=== PATIENT | female | born 1930 | race Caucasian/White ===

== ENCOUNTER 2017-07-22 11:59 | Inpatient (IN) | payer MEDICARE ==
[2017-07-17 17:02] VITALS: BMI 21.4
[2017-07-22] MEDS ORDERED: cefTRIAXone IV 1 gm in Dextros 50 ML BAG IVPB SCH (16:00)
--- NOTE | 2017-07-22 17:50 | CP.PCM.CON ---
History of Present Illness - History of Present Illness History of Present Illness: consult dictated DOMINENT TEMPORAL LOBE STROKE WITH CONDUCTIVE [facility] IN [place] ON PLAVIX AND COUMADIN WILL KEEP HER ON FOR 6 MONTHS AND WILL REPEAT THE STUDY SPEECH THERAPY OOB AND PT Past Patient History - Past Medical History & Family History Past Medical History?: Yes - Past Social History Smoking Status: Never Smoked - CARDIAC Hx Hypercholesterolemia: Yes Hx Hypertension: Yes - HEMATOLOGICAL/ONCOLOGICAL Hx AIDS: No Hx Human Immunodeficiency Virus (HIV): No - MUSCULOSKELETAL/RHEUMATOLOGICAL Hx Falls: No - GENITOURINARY/GYNECOLOGICAL Other/Comment: cystitis - PSYCHIATRIC Hx Substance Use: No - SURGICAL HISTORY Hx Surgeries: No Meds Allergies/Adverse Reactions: Allergies Allergy/AdvReac Type Severity Reaction Status Date / Time No Known Allergies Allergy Verified 07/17/17 17:01 - Medications Medications: Current Medications Acetaminophen (Tylenol 325mg Tab) 650 mg PO TID PRN PRN Reason: Headache Atorvastatin Calcium (Lipitor) 20 mg PO HS [facility] Clopidogrel Bisulfate (Plavix) 75 mg PO DAILY [facility] Ceftriaxone Sodium 1 gm/ (Sodium Chloride) 100 mls @ 100 mls/hr IVPB DAILY [facility] Lisinopril (Zestril) 20 mg PO DAILY [facility] Results - Vital Signs Recent Vital Signs: Last Vital Signs Temp Pulse 70 07/22/17 16:10 Resp 20 07/22/17 16:10 BP Pulse Ox 97 07/22/17 16:10
--- NOTE | 2017-07-22 18:08 | CP.PCM.PN ---
Subjective - Date & Time of Evaluation Date of Evaluation: 07/22/17 Time of Evaluation: 18:07 - Subjective Subjective: CVA Objective - Vital Signs/Intake and Output Vital Signs (last 24 hours): Temp Pulse Resp BP Pulse Ox 70 20 97 07/22/17 16:10 07/22/17 16:10 07/22/17 16:10 - Medications Medications: Current Medications Acetaminophen (Tylenol 325mg Tab) 650 mg PO TID PRN PRN Reason: Headache Atorvastatin Calcium (Lipitor) 20 mg PO HS [facility] Clopidogrel Bisulfate (Plavix) 75 mg PO DAILY [facility] Cyanocobalamin (Vitamin B12 1000 Mcg/Ml Inj) 1,000 mcg IM ONCE [facility] Stop: 07/24/17 17:57 Last Admin: 07/22/17 18:07 Dose: 1,000 mcg Ceftriaxone Sodium 1 gm/ (Sodium Chloride) 100 mls @ 100 mls/hr IVPB DAILY@ 1700 [facility] Last Admin: 07/22/17 18:06 Dose: 100 mls/hr Lisinopril (Zestril) 20 mg PO DAILY [facility] Physiatry Overall Plan of Care - Overall Plan of Care Estimated Length of Stay in Weeks: 3 Rehab Impairment: Mobility, Gait, Speech, Balance, Coordination Etiologic Diagnosis: Cerebrovascular Accident Rehab/Medical Prognosis: Fair - Anticipated Interventions Physical Therapy:: Yes Occupational Therapy:: Yes Speech Therapy:: Yes Recreational Therapy:: Yes - Therapy Goals Bed Mobility: Supervision Ambulation: Supervision Functional Positional Changes:: Supervision - Discharge Plan Discharge Destination: Home
--- NOTE | 2017-07-22 18:14 | CP.PCM.CON ---
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 absent: Abnormal Movements Past Patient History - Past Medical History & Family History Past Medical History?: Yes - Past Social History Smoking Status: Never Smoked Alcohol: None Drugs: Denies Home Situation {Lives}: With Family - CARDIAC Hx Hypercholesterolemia: Yes Hx Hypertension: Yes - HEMATOLOGICAL/ONCOLOGICAL Hx AIDS: No Hx Human Immunodeficiency Virus (HIV): No - MUSCULOSKELETAL/RHEUMATOLOGICAL Hx Falls: No - GENITOURINARY/GYNECOLOGICAL Other/Comment: cystitis - PSYCHIATRIC Hx Substance Use: No - SURGICAL HISTORY Hx Surgeries: No Meds Allergies/Adverse Reactions: Allergies Allergy/AdvReac Type Severity Reaction Status Date / Time No Known Allergies Allergy Verified 07/17/17 17:01 - Medications Medications: Current Medications Acetaminophen (Tylenol 325mg Tab) 650 mg PO TID PRN PRN Reason: Headache Atorvastatin Calcium (Lipitor) 20 mg PO HS [facility] Clopidogrel Bisulfate (Plavix) 75 mg PO DAILY [facility] Cyanocobalamin (Vitamin B12 1000 Mcg/Ml Inj) 1,000 mcg IM ONCE [facility] Stop: 07/24/17 17:57 Last Admin: 07/22/17 18:07 Dose: 1,000 mcg Ceftriaxone Sodium 1 gm/ (Sodium Chloride) 100 mls @ 100 mls/hr IVPB DAILY@ 1700 [facility] Last Admin: 07/22/17 18:06 Dose: 100 mls/hr Lisinopril (Zestril) 20 mg PO DAILY [facility] Physical Exam - Constitutional Appears: Non-toxic, No Acute Distress - Head Exam Head Exam: ATRAUMATIC, NORMAL INSPECTION, NORMOCEPHALIC - Eye Exam Eye Exam: EOMI - ENT Exam ENT Exam: Mucous Membranes Moist - Respiratory Exam Respiratory Exam: NORMAL BREATHING PATTERN - Cardiovascular Exam Cardiovascular Exam: REGULAR RHYTHM - GI/Abdominal Exam GI & Abdominal Exam: Normal Bowel Sounds. absent: Distended - Extremities Exam Extremities exam: Positive for: normal inspection. Negative for: calf tenderness - Neurological Exam Neurological exam: Alert, CN II-XII Intact - Psychiatric Exam Psychiatric exam: Normal Affect, Normal Mood Results - Vital Signs Recent Vital Signs: Last Vital Signs Temp Pulse 70 07/22/17 16:10 Resp 20 07/22/17 16:10 BP Pulse Ox 97 07/22/17 16:10 Assessment & Plan - Assessment and Plan (Free Text) Assessment: 87 year old with left CVA and a decrease in ADL and ambulation PT/OT to continue to help increase functional independence Team conference for d/c planning Pain: controlled Vascular: no evidence of DVT GI: No evidence of constipation or diarrhea Patient is an excellent acute rehabilitation candidate and will have focused speech, PT, OT and recreational therapy to help facilitate a safe and appropriate d/c plan impairment code: 01.2
--- NOTE | 2017-07-22 23:11 | CON ---
ATTENDING PHYSICIAN: Isai Gann MD. LOCATION: Room #626. REASON FOR CONSULTATION: Speech impairment. HISTORY OF PRESENT ILLNESS: The patient was admitted last week (07/17/2017) with speech impairment which started abruptly following her lunch. Initially, the patient was manifesting a bit of possible transient global amnesia which was not recovered and persistent over 24-hour period. Did have a workup which showed a left temporal lobe acute ischemic process. She did undergo a CT angiogram which does not reveal any thrombogenesis or any obstruction in intracranial as well as extracranial arteries. 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 Following finding in the HERNAN, the patient was placed on Coumadin for long-term anticoagulation with antiplatelet agent. The patient completed her medical workup and she was stabilized, being transferred to acute rehabilitation. PAST MEDICAL HISTORY: Unremarkable except dyslipidemia. PERSONAL HISTORY: Denies smoking or alcohol use. ALLERGIES: NO KNOWN ALLERGIES. REVIEW OF SYSTEMS: As per the chart except neurological manifestation of speech impairment. PHYSICAL EXAMINATION: VITAL SIGNS: Blood pressure 130/86, pulse rate 82, respiratory rate 16, temperature afebrile. NECK: Supple. No carotid bruit. HEART: Sounds regular. CHEST: Fair air entry. EXTREMITIES: No edema in legs. NEUROLOGIC: Mental status: She is oriented to person only, the place she could not able to tell. Naming, repetition impaired. Fluency is intact. Comprehension is also affected. She could not able to read or spell at this time. No facial asymmetry. Hearing is normal. Tongue is midline. Good gag. Motor: Outstretched hand with eyes closed, no drift is noted. Power is symmetric on either side. Deep tendon reflexes, biceps, brachialis, and triceps are 1+ on either side, both knees are 1+, both ankles are absent. Plantars are downgoing. Sensory examination is grossly intact. Gait normal. She could be able to walk as usual. There is no evidence of hemiparetic gait. LABORATORY DATA: Her recent blood workup before [facility] at [facility] was WBC 4.4, hemoglobin 14.1, hematocrit 42.9, platelets 157. PT 11.6, INR 1.0, PTT 31. Sodium 144, potassium 3.9, chloride 103, bicarbonate 28, BUN 14, GFR more than 60, hemoglobin A1c 5.4. Liver functions are normal. CRP 0.3, triglyceride 111, cholesterol 195, LDL 141, HDL 52, B12 307, folate 14.4, homocysteine 13.0. RECOMMENDATIONS: 1. The patient should get speech therapy and physical therapy to improve her gait. 2. Continue Plavix and Coumadin for 6 months. Following this if the patient is stable, the patient should have a transesophageal echocardiogram for followup. Then, Coumadin can be discontinued depending on the presentation in 6 months of time. 3. The patient's condition will be discussed with her daughter and admitting physician. The patient will be followed closely while she is in the hospital. Noel Quiñonez MD
--- NOTE | 2017-07-23 17:55 | CP.PCM.CON ---
History of Present Illness - History of Present Illness History of Present Illness: I was asked to evaluate patient by Dr. Gann. Patient is a 87 year odl female with PMH HTN, hyperchoelstrolemia who presented to [facility] with aphasia. The patient was managed for CVA. HERNAN performed at [facility] revealed nornal left ventricular function and no left atrial appendage thrombus. However the patient was found to have atherosclerosis of the aorta. The patient was started on antiplatelet therapy and coumadin. She is transferred to [place] [facility]. She is more communicative and denies chest pain or dyspnea. The patient denies history of atrial fibrillation. Review of Systems - Constitutional Constitutional: absent: As Per HPI, Anorexia, Chills, Daytime Sleepiness, Excessive Sweating, Fatigue, Fever, Frequent Falls, Headache, Increased Appetite , Lethargy, Malaise, Night Sweats, Snoring, Sleep Apnea, Weight Gain, Weight Loss, Weakness, Other - EENT Eyes: absent: As Per HPI, Blind Spots, Blurred Vision, Change in Vision, Decreased Night Vision, Diplopia, Discharge, Dry Eye, Exophthalmos, Floaters, Irritation, Itchy Eyes, Loss of Peripheral Vision, Pain, Photophobia, Requires Corrective Lenses, Sees Flashes, Spots in Vision, Tunnel Vision, Other Visual Disturbances, Loss of Vision, Other Ears: absent: As Per HPI, Decreased Hearing, Ear Discharge, Ear Pain, Tinnitus, Abnormal Hearing, Disequilibrium, Dizziness, Other Nose/Mouth/Throat: absent: As Per HPI, Epistaxis, Nasal Congestion, Nasal Discharge, Nasal Obstruction, Nasal Trauma, Nose Pain, Post Nasal Drip, Sinus Pain, Sinus Pressure, Bleeding Gums, Change in Voice, Dental Pain, Dry Mouth, Dysphagia, Halitosis, Hoarsness, Lip Swelling, Mouth Lesions, Mouth Pain, Odynophagia, Sore Throat, Throat Swelling, Tongue Swelling, Facial Pain, Neck Pain, Neck Mass, Other - Cardiovascular Cardiovascular: absent: As Per HPI, Acrocyanosis, Chest Pain, Chest Pain at Rest , Chest Pain with Activity, Claudication, Diaphoresis, Dyspnea, Dyspnea on Exertion, Edema, Irregular Heart Rhythm, Pain Radiating to Arm/Neck/Jaw, Leg Edema, Leg Ulcers, Lightheadedness, Orthopnea, Palpitations, Paroxysmal Nocturnal Dyspnea, Pedal Edema, Radiating Pain, Rapid Heart Rate, Slow Heart Rate, Syncope, Other - Respiratory Respiratory: absent: As Per HPI, Cough, Dyspnea, Hemoptysis, Dyspnea on Exertion , Wheezing, Snoring, Stridor, Pain on Inspiration, Chest Congestion, Excessive Mucous Production, Change in Mucous Color, Pain with Coughing, Other - Gastrointestinal Gastrointestinal: absent: As Per HPI, Abdominal Pain, Belching, Bloating, Change in Bowel Habits, Change in Stool Character, Coffee Ground Emesis, Constipation, Cramping, Diarrhea, Dyspepsia, Dysphagia, Early Satiety, Excessive Flatus, Fecal Incontinence, Heartburn, Hematemesis, Hematochezia, Loose Stools, Melena, Nausea, Odynophagia, Temesmus, Vomiting, Other - Genitourinary Genitourinary: absent: As Per HPI, Change in Urinary Stream, Difficulty Urinating, Dysuria, Flank Pain, Hematuria, Pyuria, Nocturia, Urinary Incontinence, Urinary Frequency, Urinary Hesitance, Urinary Urgency, Voiding Freq/Small Amts, Freq UTI, Hx Renal/Bladder Calculi, Hx /Renal Surgery, Bladder Distension, Other - Musculoskeletal Musculoskeletal: absent: As Per HPI, Abnormal Gait, Arthralgias, Atrophy, Back Pain, Deformity, Joint Swelling, Limited Range of Motion, Loss of Height, Muscle Cramps, Muscle Weakness, Myalgias, Neck Pain, Numbness, Radiating Pain into Limb, Stiffness, Tingling, Other - Integumentary Integumentary: absent: As Per HPI, Acne, Alopecia, Bleeding Lesions, Change in Hair, Change in Nails, Change in Pigmentation, Changing Lesions, Dry Skin, Erythema, Furuncle, Hirsutism, Lesions, New Lesions, Non-Healing Lesions, Photosensitivity, Pruritus, Rash, Skin Pain, Skin Ulcer, Sores, Striae, Swelling , Unusual Bruising, Wounds, Jaundice, Other - Neurological Neurological: Abnormal Speech - Psychiatric Psychiatric: absent: As Per HPI, Abnormal Sleep Pattern, Anhedonia, Anxiety, Auditory Hallucinations, Behavioral Changes, Change in Appetite, Change in Libido, Confusion, Depression, Difficulty Concentrating, Hallucinations, Homicidal Ideation, Hopelessness, Irritability, Memory Loss, Mood Swings, Panic Attacks, Paranoia, Suicidal Ideation, Visual Hallucinations, Tactile Hallucinations, Other - Endocrine Endocrine: absent: As Per HPI, Change in Body Appearance, Change in Libido, Cold Intolorance, Deepening of Voice, Excessive Sweating, Fatigue, Flushing, Heat Intolorance, Increase in Ring/Shoe/Hat Size, Palpitations, Polydipsia, Polyphagia, Polyuria, Other - Hematologic/Lymphatic Hematologic: absent: As Per HPI, Easy Bleeding, Easy Bruising, Lymphadenopathy, Other Past Patient History - Past Medical History & Family History Past Medical History?: Yes - Past Social History Smoking Status: Never Smoked Alcohol: None Drugs: Denies Home Situation {Lives}: With Family - CARDIAC Hx Hypercholesterolemia: Yes Hx Hypertension: Yes - HEMATOLOGICAL/ONCOLOGICAL Hx AIDS: No Hx Human Immunodeficiency Virus (HIV): No - MUSCULOSKELETAL/RHEUMATOLOGICAL Hx Falls: No - GENITOURINARY/GYNECOLOGICAL Other/Comment: cystitis - PSYCHIATRIC Hx Substance Use: No - SURGICAL HISTORY Hx Surgeries: No Meds Allergies/Adverse Reactions: Allergies Allergy/AdvReac Type Severity Reaction Status Date / Time No Known Allergies Allergy Verified 07/17/17 17:01 - Medications Medications: Current Medications Acetaminophen (Tylenol 325mg Tab) 650 mg PO TID PRN PRN Reason: Headache Atorvastatin Calcium (Lipitor) 20 mg PO HS [facility] Last Admin: 07/22/17 21:01 Dose: 20 mg Clopidogrel Bisulfate (Plavix) 75 mg PO DAILY [facility] Last Admin: 07/23/17 08:19 Dose: 75 mg Cyanocobalamin (Vitamin B12 1000 Mcg/Ml Inj) 1,000 mcg IM ONCE [facility] Stop: 07/24/17 17:57 Last Admin: 07/22/17 18:07 Dose: 1,000 mcg Lisinopril (Zestril) 20 mg PO DAILY [facility] Last Admin: 07/23/17 08:19 Dose: 20 mg Physical Exam - Constitutional Appears: Non-toxic - Head Exam Head Exam: NORMAL INSPECTION - Eye Exam Eye Exam: Normal appearance - ENT Exam ENT Exam: Mucous Membranes Moist - Neck Exam Neck exam: Positive for: Normal Inspection - Respiratory Exam Respiratory Exam: NORMAL BREATHING PATTERN - Cardiovascular Exam Cardiovascular Exam: Irregular Rhythm - GI/Abdominal Exam GI & Abdominal Exam: Normal Bowel Sounds - Rectal Exam Rectal Exam: Deferred - Extremities Exam Extremities exam: Negative for: pedal edema - Back Exam Back exam: NORMAL INSPECTION - Neurological Exam Neurological exam: Alert, Oriented x3 - Psychiatric Exam Psychiatric exam: Normal Affect - Skin Skin Exam: Normal Color Results - Vital Signs Recent Vital Signs: Last Vital Signs Temp 97.7 F 07/23/17 08:17 Pulse 65 07/23/17 08:19 Resp 18 07/23/17 08:17 BP 149/83 07/23/17 08:19 Pulse Ox 96 07/23/17 08:17 - Labs Labs: Laboratory Results - last 24 hr 07/23/17 09:05 PT 18.2 H INR 1.8 H - EKG Data EKG Interpreted by: Myself Assessment & Plan (1) CVA (cerebral vascular accident) Assessment and Plan: on approved antiplatelet and anticoagulant therapy as per neurology. will continue Status: Acute (2) Dyslipidemia Assessment and Plan: statin therapy Status: Acute (3) Hypertension Assessment and Plan: manage blood pressure Status: Acute
--- NOTE | 2017-07-24 10:34 | CP.PCM.PN ---
Subjective - Date & Time of Evaluation Date of Evaluation: 07/24/17 Time of Evaluation: 10:00 - Subjective Subjective: patient is doing well. Objective - Vital Signs/Intake and Output Vital Signs (last 24 hours): Temp Pulse Resp BP Pulse Ox 97.5 F L 64 18 147/79 95 07/24/17 07:34 07/24/17 08:55 07/24/17 07:34 07/24/17 08:55 07/24/17 07:34 - Medications Medications: Current Medications Acetaminophen (Tylenol 325mg Tab) 650 mg PO TID PRN PRN Reason: Headache Atorvastatin Calcium (Lipitor) 20 mg PO HS [facility] Last Admin: 07/23/17 21:24 Dose: 20 mg Clopidogrel Bisulfate (Plavix) 75 mg PO DAILY [facility] Last Admin: 07/24/17 08:55 Dose: 75 mg Cyanocobalamin (Vitamin B12 1000 Mcg/Ml Inj) 1,000 mcg IM ONCE [facility] Stop: 07/24/17 17:57 Last Admin: 07/22/17 18:07 Dose: 1,000 mcg Lisinopril (Zestril) 20 mg PO DAILY [facility] Last Admin: 07/24/17 08:55 Dose: 20 mg - Labs Labs: PT 32.0 Seconds (9.8-13.1) H D 07/24/17 09:00 INR 3.0 (0.9-1.2) H D 07/24/17 09:00 - Constitutional Appears: Non-toxic - Head Exam Head Exam: NORMAL INSPECTION - Eye Exam Eye Exam: Normal appearance - ENT Exam ENT Exam: Mucous Membranes Moist - Neck Exam Neck Exam: Full ROM - Respiratory Exam Respiratory Exam: NORMAL BREATHING PATTERN - Cardiovascular Exam Cardiovascular Exam: REGULAR RHYTHM - GI/Abdominal Exam GI & Abdominal Exam: Normal Bowel Sounds - Rectal Exam Rectal Exam: Deferred - Extremities Exam Extremities Exam: Pedal Edema - Back Exam Back Exam: NORMAL INSPECTION - Neurological Exam Neurological Exam: Alert - Psychiatric Exam Psychiatric exam: Normal Affect - Skin Skin Exam: Normal Color Assessment and Plan (1) CVA (cerebral vascular accident) Assessment & Plan: continue anticoagulant and antiplatelet therapy Status: Acute (2) Dyslipidemia Status: Acute (3) Hypertension Assessment & Plan: will monitor blood pressure Status: Acute
--- NOTE | 2017-07-24 19:38 | CP.PCM.HP ---
History of Present Illness - History of Present Illness History of Present Illness: This is an 87 y/o female with hx of HTN and hyperlipidemia had a CVA temporal lobe , admitted to [facility] and transferred to Acute Rehab. She has no motor or sensory deficit or speech problems. However she has difficulty with retrieving information such as remembering names of people and objects.She apparently had atrial fibrillation in the hospital . She was placed on Coumadin and plavix. Past Patient History - Past Medical History & Family History Past Medical History?: Yes - Past Social History Smoking Status: Never Smoked Alcohol: None Drugs: Denies Home Situation {Lives}: With Family - CARDIAC Hx Hypercholesterolemia: Yes Hx Hypertension: Yes - HEMATOLOGICAL/ONCOLOGICAL Hx AIDS: No Hx Human Immunodeficiency Virus (HIV): No - MUSCULOSKELETAL/RHEUMATOLOGICAL Hx Falls: No - GENITOURINARY/GYNECOLOGICAL Other/Comment: cystitis - PSYCHIATRIC Hx Substance Use: No - SURGICAL HISTORY Hx Surgeries: No Meds Allergies/Adverse Reactions: Allergies Allergy/AdvReac Type Severity Reaction Status Date / Time No Known Allergies Allergy Verified 07/17/17 17:01 Results - Vital Signs Recent Vital Signs: Last Vital Signs Temp 97.5 F L 07/24/17 07:34 Pulse 64 07/24/17 08:55 Resp 18 07/24/17 07:34 BP 147/79 07/24/17 08:55 Pulse Ox 95 07/24/17 07:34 - Labs Labs: Laboratory Results - last 24 hr 07/24/17 09:00 PT 32.0 H D INR 3.0 H D
--- NOTE | 2017-07-24 19:40 | CP.PCM.PN ---
Subjective - Date & Time of Evaluation Date of Evaluation: 07/23/17 Time of Evaluation: 10:00 - Subjective Subjective: Patient continues to do well Has no chest pain or SOB Afebrile. Objective - Vital Signs/Intake and Output Vital Signs (last 24 hours): Temp Pulse Resp BP Pulse Ox 97.5 F L 64 18 147/79 95 07/24/17 07:34 07/24/17 08:55 07/24/17 07:34 07/24/17 08:55 07/24/17 07:34 - Medications Medications: Current Medications Acetaminophen (Tylenol 325mg Tab) 650 mg PO TID PRN PRN Reason: Headache Atorvastatin Calcium (Lipitor) 20 mg PO HS [facility] Last Admin: 07/23/17 21:24 Dose: 20 mg Clopidogrel Bisulfate (Plavix) 75 mg PO DAILY [facility] Last Admin: 07/24/17 08:55 Dose: 75 mg Lisinopril (Zestril) 20 mg PO DAILY [facility] Last Admin: 07/24/17 08:55 Dose: 20 mg - Labs Labs: PT 32.0 Seconds (9.8-13.1) H D 07/24/17 09:00 INR 3.0 (0.9-1.2) H D 07/24/17 09:00
--- NOTE | 2017-07-24 19:40 | CP.PCM.PN ---
Subjective - Date & Time of Evaluation Date of Evaluation: 07/24/17 Time of Evaluation: 19:40 - Subjective Subjective: patient is stable Has no chest pain or SOB. Objective - Vital Signs/Intake and Output Vital Signs (last 24 hours): Temp Pulse Resp BP Pulse Ox 97.5 F L 64 18 147/79 95 07/24/17 07:34 07/24/17 08:55 07/24/17 07:34 07/24/17 08:55 07/24/17 07:34 - Medications Medications: Current Medications Acetaminophen (Tylenol 325mg Tab) 650 mg PO TID PRN PRN Reason: Headache Atorvastatin Calcium (Lipitor) 20 mg PO HS [facility] Last Admin: 07/23/17 21:24 Dose: 20 mg Clopidogrel Bisulfate (Plavix) 75 mg PO DAILY [facility] Last Admin: 07/24/17 08:55 Dose: 75 mg Lisinopril (Zestril) 20 mg PO DAILY [facility] Last Admin: 07/24/17 08:55 Dose: 20 mg - Labs Labs: PT 32.0 Seconds (9.8-13.1) H D 07/24/17 09:00 INR 3.0 (0.9-1.2) H D 07/24/17 09:00
[2017-07-25] MEDS ORDERED: Bisacodyl 5mg EC Tab PO PRN (15:44)
--- NOTE | 2017-07-25 23:27 | CP.PCM.PN ---
Subjective - Date & Time of Evaluation Date of Evaluation: 07/25/17 Time of Evaluation: 10:20 - Subjective Subjective: Patient continues to do well Still with problems with retrieving information katie names. Has no chest pain or SOB. Objective - Vital Signs/Intake and Output Vital Signs (last 24 hours): Temp Pulse Resp BP Pulse Ox 97.7 F 67 18 105/49 L 95 07/25/17 20:30 07/25/17 20:30 07/25/17 20:30 07/25/17 20:30 07/25/17 20:30 - Medications Medications: Current Medications Acetaminophen (Tylenol 325mg Tab) 650 mg PO TID PRN PRN Reason: Headache Atorvastatin Calcium (Lipitor) 20 mg PO HS [facility] Last Admin: 07/25/17 21:14 Dose: 20 mg Bisacodyl (Dulcolax) 5 mg PO DAILY PRN PRN Reason: Constipation Clopidogrel Bisulfate (Plavix) 75 mg PO DAILY [facility] Last Admin: 07/25/17 09:08 Dose: 75 mg Lisinopril (Zestril) 20 mg PO DAILY [facility] Last Admin: 07/25/17 09:08 Dose: 20 mg - Labs Labs: PT 44.3 Seconds (9.8-13.1) H* 07/25/17 06:30 INR 4.2 (0.9-1.2) H D 07/25/17 06:30
--- NOTE | 2017-07-27 11:10 | CP.PCM.PN ---
Subjective - Date & Time of Evaluation Date of Evaluation: 07/26/17 Time of Evaluation: 09:30 - Subjective Subjective: Patient is doing well with PT Still with no improvement with retrieving info. Objective - Vital Signs/Intake and Output Vital Signs (last 24 hours): Temp Pulse Resp BP Pulse Ox 97.3 F L 62 20 134/74 95 07/27/17 08:00 07/27/17 08:52 07/27/17 08:00 07/27/17 08:52 07/27/17 08:00 - Medications Medications: Current Medications Acetaminophen (Tylenol 325mg Tab) 650 mg PO TID PRN PRN Reason: Headache Atorvastatin Calcium (Lipitor) 20 mg PO HS [facility] Last Admin: 07/26/17 21:15 Dose: 20 mg Bisacodyl (Dulcolax) 5 mg PO DAILY PRN PRN Reason: Constipation Clopidogrel Bisulfate (Plavix) 75 mg PO DAILY [facility] Last Admin: 07/27/17 08:52 Dose: 75 mg Lisinopril (Zestril) 20 mg PO DAILY [facility] Last Admin: 07/27/17 08:52 Dose: 20 mg Pantoprazole Sodium (Protonix Ec Tab) 40 mg PO DAILY [facility] - Labs Labs: PT 64.2 Seconds (9.8-13.1) H* 07/26/17 08:50 INR 6.0 (0.9-1.2) H D 07/26/17 08:50
--- NOTE | 2017-07-27 11:11 | CP.PCM.PN ---
Subjective - Date & Time of Evaluation Date of Evaluation: 07/27/17 Time of Evaluation: 11:10 - Subjective Subjective: Patient remains stable Has no headaches No chest pain or SOB. Objective - Vital Signs/Intake and Output Vital Signs (last 24 hours): Temp Pulse Resp BP Pulse Ox 97.3 F L 62 20 134/74 95 07/27/17 08:00 07/27/17 08:52 07/27/17 08:00 07/27/17 08:52 07/27/17 08:00 - Medications Medications: Current Medications Acetaminophen (Tylenol 325mg Tab) 650 mg PO TID PRN PRN Reason: Headache Atorvastatin Calcium (Lipitor) 20 mg PO HS [facility] Last Admin: 07/26/17 21:15 Dose: 20 mg Bisacodyl (Dulcolax) 5 mg PO DAILY PRN PRN Reason: Constipation Clopidogrel Bisulfate (Plavix) 75 mg PO DAILY [facility] Last Admin: 07/27/17 08:52 Dose: 75 mg Lisinopril (Zestril) 20 mg PO DAILY [facility] Last Admin: 07/27/17 08:52 Dose: 20 mg Pantoprazole Sodium (Protonix Ec Tab) 40 mg PO DAILY [facility] - Labs Labs: PT 64.2 Seconds (9.8-13.1) H* 07/26/17 08:50 INR 6.0 (0.9-1.2) H D 07/26/17 08:50
[2017-07-27] MEDS: Pantoprazole 40 mg EC Tab PO SCH (12:34)
--- NOTE | 2017-07-27 13:13 | PSY.TMCNF ---
Nursing - Vital Signs Vital Signs (Last 8 hours): Vital Signs 07/27/17 07/27/17 07/27/17 08:00 08:52 12:22 Temperature 97.3 F L 97.3 F L Pulse Rate 62 62 62 Respiratory 20 20 Rate Blood Pressure 134/74 134/74 134/74 O2 Sat by Pulse 95 Oximetry Pain: 0 - Precautions: Precautions: Fall Prevention, Aspiration, Cardiac/Pulmonary - Medications/Other Issues Comment: constipated given dulcolax po as ordered and prune juice on avasys confused and disoriented on high inr 10/2 coumadin on hold - Consults Comment: DR Quiñonez,DR Quiñonez,Dr Pizano - Toileting Toileting: Contact Guard - Bladder Management Bladder Pattern: Normal Voiding Method: Toilet Bladder Management: Contact Guard - Bowel Management Bowel Pattern: Constipated Comment: on dulcolax po prn Bowel Management: Minimal Assistance - Transfers Transfers: Contact Guard - ADL's ADL's: Contact Guard - Pain Management Comments: denies any pain - Patient/Family Teaching Comments: safety/fall , bleeding precautions - Goals/Time Frame Comments: as per multidiciplinary paln of care - Provider Provider: Vinh Larsen Physical Therapy - Bed Mobility Bed Mobility: Supervision, Verbal Cues Comment: bed mob CS and vc for safety - Transfers Sit to Stand: Supervision - Ambulation Level of Assistance: Supervision, Verbal Cues, Contact Guard Distance (ft.): 125 Assistive Devices: N/A - Stair Negotiation Stairs: Level of Assistance: Verbal Cues, Contact Guard Number of Stairs: 11 - Standing Balance Static Stand: Supervision Dynamic Stand: Contact Guard Assist Comment: w/o AD - Pain Pain (assessed during therapy session): 0 - Insight/Carryover Insight/Carryover: Fair - Patient/Family Education Comment: -ongoing for adls, functional transfers/mobility and cognitive tasks for safe transition home with 24 hour care - Assessment/Plan Assessment: Pt has yet to participate in 1:1 or group recreation therapy session 2' fatigue. Pt presents with aphasia and requires verbal cues for reorientation to current situation and requires motivation and encouragement to participate in sessions. Pt's main barriers to participation is decrease orientation, decrease thought organization, decrease word retrieval, and decrease arousal. If agreeable and aroused, pt would benefit from participating in recreation therapy sessions. - Goals Timeframe: 1 week Goals: -DS/Supervision & verbal cues for self care, functional transfers and bed mobility. -Caregiver to be I in assisting/cueing patinet for adls, functional transfers/mobilty, Iadls using safety measures - Provider Therapist: Yudi olmstead PT License Number: [id number] Occupational Therapy - Arousal/Attention/Orientation Patient Orientation: Person - ADL/IADL Self Feeding: Supervision, Set-up Help Grooming: Supervision, Set-up Help Bathing-Upper Extremity: Supervision, Verbal Cues, Set-up Help Bathing-Lower Extremity: Verbal Cues, Set-up Help, Minimal Assistance Dressing-Upper Extremity: Supervision, Verbal Cues, Set-up Help Dressing-Lower Extremity: Supervision, Verbal Cues, Contact Guard - Sitting Balance Static Sitting: Independent without upper extremity support Dynamic Sitting: Reaches across midline, Reaches within base of support, Requires supervision Comment: at edge of bed - Transfers Wheelchair to Bed Transfers: Contact Guard Toilet Transfers: Contact Guard Comment: shower transfers: CG/Min assist and verbal cues - Wheelchair Management Level of Assistance: Not Applicable - Upper Extremity Status Right Upper Extremity Comment: AROM is WFLs Left Upper Extremity Comment: AROM is WFLs - Pain Pain (assessed during therapy session): 0 - Insight/Carryover Insight/Carryover: Fair - Patient/Family Education Comment: -ongoing for adls, functional transfers/mobility and cognitive tasks for safe transition home with 24 hour care - Assessment/Plan Assessment: Pt has yet to participate in 1:1 or group recreation therapy session 2' fatigue. Pt presents with aphasia and requires verbal cues for reorientation to current situation and requires motivation and encouragement to participate in sessions. Pt's main barriers to participation is decrease orientation, decrease thought organization, decrease word retrieval, and decrease arousal. If agreeable and aroused, pt would benefit from participating in recreation therapy sessions. - Goals Timeframe: 1 week Goals: -DS/Supervision & verbal cues for self care, functional transfers and bed mobility. -Caregiver to be I in assisting/cueing patinet for adls, functional transfers/mobilty, Iadls using safety measures - Provider Therapist: Mary Gillis OTR/L License Number: [id number] Speech Therapy - Consult Information Patient on Program: Yes Medical Diagnosis: CVA Treatment Diagnosis: moderate-severe expressive aphasia, moderate receptive aphasia - Assessment Expressive Language Impairment: Severe Comment: moderate-severe Receptive Language Impairment: Moderate - Plan Assessment: Pt has yet to participate in 1:1 or group recreation therapy session 2' fatigue. Pt presents with aphasia and requires verbal cues for reorientation to current situation and requires motivation and encouragement to participate in sessions. Pt's main barriers to participation is decrease orientation, decrease thought organization, decrease word retrieval, and decrease arousal. If agreeable and aroused, pt would benefit from participating in recreation therapy sessions. - Provider Therapist: Abi Sanford License Number: [id number] Recreational Therapy - Participation Participation: Monitors His/Her Own Leisure Time - Attendance Attendance: Daily - Activities Leisure Activities: Reading - Socialization Level of Socialization: Initiates/interacts with caregivers but not with peer - Diversional Time Diversional Time: prayer books in room - Assessment Assessment/Plan: Pt has yet to participate in 1:1 or group recreation therapy session 2' fatigue. Pt presents with aphasia and requires verbal cues for reorientation to current situation and requires motivation and encouragement to participate in sessions. Pt's main barriers to participation is decrease orientation, decrease thought organization, decrease word retrieval, and decrease arousal. If agreeable and aroused, pt would benefit from participating in recreation therapy sessions. Problems Currently Limiting Participation: decrease orientation, decrease recall , decrease thought organization, decrease leisure awareness level Goals and Time Frame: Pt will be encouraged to participate in 1:1 and group recreation therapy sessions 3-5x week to improve word finding, thought organization, problem solving, direction following, number and letter recognition, and leisure awareness level. - Provider Therapist: Marzena Howard, [employer] #[id number] Nutrition - Current Diet Current Diet/ Supplement/ Feedings: Heart healthy: 2 gram Na diet - Appetite Percent Meal Consumed: 75-100% - Comments Comments: safety/fall , bleeding precautions - Assessment/Goals/Time Frame Assessment/Goals/Time Frame: constipated given dulcolax po as ordered and prune juice on avasys confused and disoriented on high inr 10/2 coumadin on hold - Provider Provider: Deepti Curry RD Rehabilitation Plan - Treatment Plan Treatment Plan: Physical Therapy, Occupational Therapy, Speech, Dietary, Patient /Family Education - Discharge Plan Estimated Date of Discharge: 08/03/17 Discharge to: Home
--- NOTE | 2017-07-27 18:20 | CP.PCM.PN ---
Subjective - Date & Time of Evaluation Date of Evaluation: 07/27/17 Time of Evaluation: 13:30 - Subjective Subjective: Patient seen in room denies sob/cp no headaches continue current care Objective - Vital Signs/Intake and Output Vital Signs (last 24 hours): Temp Pulse Resp BP Pulse Ox 97.3 F L 62 20 134/74 95 07/27/17 12:22 07/27/17 12:22 07/27/17 12:22 07/27/17 12:22 07/27/17 08:00 - Medications Medications: Current Medications Acetaminophen (Tylenol 325mg Tab) 650 mg PO TID PRN PRN Reason: Headache Atorvastatin Calcium (Lipitor) 20 mg PO HS [facility] Last Admin: 07/26/17 21:15 Dose: 20 mg Bisacodyl (Dulcolax) 5 mg PO DAILY PRN PRN Reason: Constipation Last Admin: 07/27/17 12:34 Dose: 5 mg Clopidogrel Bisulfate (Plavix) 75 mg PO DAILY [facility] Last Admin: 07/27/17 08:52 Dose: 75 mg Lisinopril (Zestril) 20 mg PO DAILY [facility] Last Admin: 07/27/17 08:52 Dose: 20 mg Pantoprazole Sodium (Protonix Ec Tab) 40 mg PO DAILY [facility] Last Admin: 07/27/17 12:34 Dose: 40 mg - Labs Labs: PT 64.2 Seconds (9.8-13.1) H* 07/26/17 08:50 INR 6.0 (0.9-1.2) H D 07/26/17 08:50
[2017-07-28 06:26] LABS: HEMATOCRIT 42.5 % (34.0-47.0); MEAN CELL VOLUME 95.4 fl (81.0-99.0); MEAN CORPUSCULAR HEMOGLOBIN 31.3 pg (27.0-31.0); MEAN CORPUSCULAR HGB CONC 32.9 g/dL (33.0-37.0); RED CELL DISTRIBUTION WIDTH 12.7 % (11.5-14.5); WHITE BLOOD COUNT 5.9 K/uL (4.8-10.8)
[2017-07-28 06:37] LABS: BLOOD UREA NITROGEN 21 mg/dl (7-17); CALCIUM 9.1 mg/dL (8.4-10.2); CARBON DIOXIDE 24 mmol/L (22-30); CHLORIDE 107 mmol/L (98-107); CHOLESTEROL 141 mg/dL (0-199); GFR AFRICAN-AMERICAN > 60; GLUCOSE,RANDOM 84 mg/dL (65-105); SODIUM 144 mmol/l (132-148)
[2017-07-28 07:04] LABS: THYROID STIMULATING HORMONE 2.01 mIU/ML (0.46-4.68)
[2017-07-28] MEDS: Pantoprazole 40 mg EC Tab PO SCH (08:56)
--- NOTE | 2017-07-28 16:39 | CP.PCM.PN ---
Subjective - Date & Time of Evaluation Date of Evaluation: 07/28/17 Time of Evaluation: 16:38 - Subjective Subjective: Patient seen in room with visitor present INR 4.2 has safety set up given non-compliance with safety restrictions no pain continue current care Objective - Vital Signs/Intake and Output Vital Signs (last 24 hours): Temp Pulse Resp BP Pulse Ox 97.5 F L 76 20 160/76 H 98 07/28/17 10:00 07/28/17 10:00 07/28/17 10:00 07/28/17 10:00 07/28/17 10:00 - Medications Medications: Current Medications Acetaminophen (Tylenol 325mg Tab) 650 mg PO TID PRN PRN Reason: Headache Atorvastatin Calcium (Lipitor) 20 mg PO HS [facility] Last Admin: 07/27/17 21:10 Dose: 20 mg Bisacodyl (Dulcolax) 5 mg PO DAILY PRN PRN Reason: Constipation Last Admin: 07/27/17 12:34 Dose: 5 mg Clopidogrel Bisulfate (Plavix) 75 mg PO DAILY [facility] Last Admin: 07/28/17 08:56 Dose: 75 mg Lisinopril (Zestril) 20 mg PO DAILY [facility] Last Admin: 07/28/17 08:56 Dose: 20 mg Pantoprazole Sodium (Protonix Ec Tab) 40 mg PO DAILY [facility] Last Admin: 07/28/17 08:56 Dose: 40 mg - Labs Labs: 07/28/17 04:00 07/28/17 05:20 PT 43.2 Seconds (9.8-13.1) H* 07/28/17 05:20 INR 4.1 (0.9-1.2) H D 07/28/17 05:20
[2017-07-29] MEDS: Pantoprazole 40 mg EC Tab PO SCH (09:01)
[2017-07-30] MEDS: Pantoprazole 40 mg EC Tab PO SCH (09:11)
[2017-07-31] MEDS: Pantoprazole 40 mg EC Tab PO SCH (08:36)
--- NOTE | 2017-07-31 16:36 | CP.PCM.PN ---
Subjective - Date & Time of Evaluation Date of Evaluation: 07/31/17 Time of Evaluation: 16:35 - Subjective Subjective: Patient seen in room doing ok wants to sit in chair but advised staff that it should be at nurse's station no pain some diminished insight continue current care Objective - Vital Signs/Intake and Output Vital Signs (last 24 hours): Temp Pulse Resp BP Pulse Ox 98.1 F 52 L 22 107/68 97 07/31/17 08:40 07/31/17 08:40 07/31/17 08:40 07/31/17 08:40 07/31/17 08:40 - Medications Medications: Current Medications Acetaminophen (Tylenol 325mg Tab) 650 mg PO TID PRN PRN Reason: Headache Atorvastatin Calcium (Lipitor) 20 mg PO HS [facility] Last Admin: 07/30/17 21:41 Dose: 20 mg Bisacodyl (Dulcolax) 5 mg PO DAILY PRN PRN Reason: Constipation Last Admin: 07/27/17 12:34 Dose: 5 mg Clopidogrel Bisulfate (Plavix) 75 mg PO DAILY [facility] Last Admin: 07/31/17 08:36 Dose: 75 mg Lisinopril (Zestril) 20 mg PO DAILY [facility] Last Admin: 07/31/17 08:36 Dose: 20 mg Pantoprazole Sodium (Protonix Ec Tab) 40 mg PO DAILY [facility] Last Admin: 07/31/17 08:36 Dose: 40 mg Warfarin Sodium (Coumadin) 3 mg PO ONCE ONE PRN Reason: Protocol Stop: 07/31/17 18:01 - Labs Labs: 07/28/17 04:00 07/28/17 05:20 PT 28.4 Seconds (9.8-13.1) H D 07/31/17 06:45 INR 2.5 (0.9-1.2) H D 07/31/17 06:45
--- NOTE | 2017-07-31 19:01 | PN ---
DATE: 07/31/2017 SUBJECTIVE: The patient seen and examined. The patient is seen for Dr. Gann while he is away. The patient feels okay. Denies any specific complaint of chest pain or shortness of breath. PHYSICAL EXAMINATION: GENERAL: The patient is in no acute distress. VITAL SIGNS: Stable. HEART: S1 and S2, normal and regular. LUNGS: Good bilateral air exchange. ABDOMEN: Soft and nontender. EXTREMITIES: No edema. No calf swelling. No tenderness. No acute ischemia. CENTRAL NERVOUS SYSTEM: Essentially unchanged. DIAGNOSTIC DATA: Available diagnostic data reviewed. INR is 2. ASSESSMENT AND PLAN: Overall, the patient is medically stable. Plan as ordered. Hussain Koehler MD
[2017-08-01 07:04] LABS: HEMATOCRIT 41.4 % (34.0-47.0); MEAN CELL VOLUME 94.5 fl (81.0-99.0); MEAN CORPUSCULAR HGB CONC 32.9 g/dL (33.0-37.0); RED CELL DISTRIBUTION WIDTH 12.7 % (11.5-14.5); WHITE BLOOD COUNT 4.6 K/uL (4.8-10.8)
[2017-08-01 07:19] LABS: ALB/GLOB RATIO 1.2 (1.0-2.1); ALKALINE PHOSPHATASE 82 U/L (38-126); ALT/SGPT 31 U/L (9-52); AST/SGOT 34 U/L (14-36); BILIRUBIN,TOTAL 0.4 mg/dl (0.2-1.3); BLOOD UREA NITROGEN 17 mg/dl (7-17); CARBON DIOXIDE 28 mmol/L (22-30); CHLORIDE 106 mmol/L (98-107); GFR AFRICAN-AMERICAN > 60; GLUCOSE,RANDOM 96 mg/dL (65-105); SODIUM 144 mmol/l (132-148)
[2017-08-01] MEDS: Pantoprazole 40 mg EC Tab PO SCH (08:24)
--- NOTE | 2017-08-01 13:46 | PN ---
DATE: 08/01/2017 SUBJECTIVE: The patient is seen and examined. Interim events noted. Consults noted and appreciated. Physiatry interventions noted and appreciated. The patient remains in Acute Rehab Unit. The patient feels okay. Denies any specific medical complaints. No chest pain. No shortness breath. PHYSICAL EXAMINATION GENERAL: The patient is in no acute distress. VITAL SIGNS: Stable. HEART: S1 and S2, normal and regular. LUNGS: Good bilateral air exchange. ABDOMEN: Soft and nontender. EXTREMITIES: Some edema. No calf swelling. No tenderness. No acute ischemia. CENTRAL NERVOUS SYSTEM: Essentially unchanged. DIAGNOSTIC DATA: Available diagnostic data reviewed. ASSESSMENT AND PLAN: Overall, the patient's general medical condition is stable. Plan as ordered. Hussain Koehler MD
[2017-08-02] MEDS: Pantoprazole 40 mg EC Tab PO SCH (08:28)
--- NOTE | 2017-08-02 16:36 | CP.PCM.PN ---
Subjective - Date & Time of Evaluation Date of Evaluation: 08/02/17 Time of Evaluation: 16:35 - Subjective Subjective: Patient seen in room doing ok ambulating 200' now with supervision and no assistive device still concerns of safety continue current care team conf tomorrow Objective - Vital Signs/Intake and Output Vital Signs (last 24 hours): Temp Pulse Resp BP Pulse Ox 97.3 F L 81 18 135/79 96 08/02/17 07:49 08/02/17 08:28 08/02/17 07:49 08/02/17 08:28 08/02/17 07:49 - Medications Medications: Current Medications Acetaminophen (Tylenol 325mg Tab) 650 mg PO TID PRN PRN Reason: Headache Atorvastatin Calcium (Lipitor) 20 mg PO HS [facility] Last Admin: 08/01/17 21:02 Dose: 20 mg Bisacodyl (Dulcolax) 5 mg PO DAILY PRN PRN Reason: Constipation Last Admin: 07/27/17 12:34 Dose: 5 mg Clopidogrel Bisulfate (Plavix) 75 mg PO DAILY [facility] Last Admin: 08/02/17 08:28 Dose: 75 mg Lisinopril (Zestril) 20 mg PO DAILY [facility] Last Admin: 08/02/17 08:28 Dose: 20 mg Pantoprazole Sodium (Protonix Ec Tab) 40 mg PO DAILY [facility] Last Admin: 08/02/17 08:28 Dose: 40 mg Warfarin Sodium (Coumadin) 3 mg PO 1700 KATIE PRN Reason: Protocol Stop: 08/02/17 17:01 Last Admin: 08/02/17 16:23 Dose: 3 mg - Labs Labs: 08/01/17 05:30 08/01/17 05:30 PT 36.1 Seconds (9.8-13.1) H D 08/02/17 05:25 INR 3.1 (0.9-1.2) H 08/02/17 05:25
[2017-08-02 22:33] VITALS: RESP 20
[2017-08-03 08:24] VITALS: BP 142/82; PULSE 78; TEMP 98.1; O2SAT 98
[2017-08-03] MEDS: Pantoprazole 40 mg EC Tab PO SCH (08:57)
== END 2017-08-03 17:30 | disposition home or self-care (01) | DRG 57 ==
PROVIDERS: ADMIT Family Medicine; ATTEND Family Medicine
PROC: F07M6FZ Therapeutic Exercise Treatment of Musculoskeletal System - Whole Body using Assistive, Adaptive, Supportive or Protective Equipment (ICD-10-PCS; principal; 2017-07-22)
PROC: F08Z4FZ Home Management Treatment using Assistive, Adaptive, Supportive or Protective Equipment (ICD-10-PCS; 2017-07-22)
PROC: F07Z9FZ Gait Training/Functional Ambulation Treatment using Assistive, Adaptive, Supportive or Protective Equipment (ICD-10-PCS; 2017-07-22)
DX: I69.920 Aphasia following unspecified cerebrovascular disease (principal); I48.91 Unspecified atrial fibrillation; I69.993 Ataxia following unspecified cerebrovascular disease; I10 Essential (primary) hypertension; E78.5 Hyperlipidemia, unspecified; E78.00 Pure hypercholesterolemia, unspecified; I70.0 Atherosclerosis of aorta; N30.90 Cystitis, unspecified without hematuria; Z79.01 Long term (current) use of anticoagulants; Z86.73 Personal history of transient ischemic attack (TIA), and cerebral infarction without residual deficits; Z91.19 Patient's noncompliance with other medical treatment and regimen